=== PATIENT | female | born 1970 | race Caucasian/White ===

== ENCOUNTER → 2020-12-29 | Outpatient (CLI) | payer OTHER ==
--- NOTE | 2020-12-29 08:40 | CT ---
EXAMINATION TYPE: CT lumbar spine wo con DATE OF EXAM: 12/29/2020 COMPARISON: Outside MRI 09/21/2020 HISTORY: 50-year-old female low back pain, M54.5, Lumbago, more on the Lt TECHNIQUE: Contiguous axial scanning of the lumbar spine without IV contrast. Coronal and sagittal re constructions performed. CT DLP: 987 mGycm Automated exposure control for dose reduction was used. FINDINGS: There is a generator device right paramedian posterior lower back. The leads ascend and enter the int erlaminar space of T11-T12. Anterior lumbar fusion hardware noted at L5-S1. Hypertrophic facet arthropathy lower lumbar spine. Mild multilevel degenerative disc disease with variable disc bulging. Vertebral body heights are preserved and alignment is maintained. Changes contribute to moderate left greater than right neuroforaminal stenoses at L5-S1. There is a l eft paracentral osteophytic ridge that may impinge the traversing left S1 nerve root, reference axial image 72 and sagittal image 25. Disc bulges, ligamentum flavum thickening, and facet arthropathy at L4-L5 contributes to a mild narro wing of the spinal canal. Otherwise, no evident significant spinal canal narrowing by CT. At L4-L5, hypertrophic facet arthropathy and bulging disc contributes to a mild to moderate left and mild right neuroforaminal stenosis. Bilateral nonobstructive renal calculi measuring up to 5 mm. IMPRESSION: 1. STATUS POST ANTERIOR LUMBAR FUSION AT L5-S1. THERE IS A RESIDUAL LEFT PARACENTRAL POSTERIOR OSTEOP HYTIC RIDGE WHICH ENCROACHES ONTO THE LATERAL RECESS AND MAY IMPINGE THE TRAVERSING LEFT S1 NERVE ZAID T (AXIAL IMAGE 72 AND SAGITTAL IMAGE 25). 2. MILD MULTILEVEL DEGENERATIVE DISC DISEASE. FACET ARTHROPATHY LOWER LUMBAR SPINE. 3. MODERATE LEFT GREATER THAN RIGHT NEUROFORAMINAL STENOSIS AT L5-S1. MILD TO MODERATE LEFT AND MILD RIGHT NEUROFORAMINAL STENOSIS AT L4-L5. 4. MILD NARROWING OF THE SPINAL CANAL AT L4-L5. NO TOSHA CANAL COMPROMISE EVIDENT BY CT. 5. BILATERAL NONOBSTRUCTIVE RENAL CALCULI MEASURING UP TO 5 MM.
== END | disposition home or self-care (01) ==
LOC: RADCTMAIN 06:08
PROVIDERS: ATTEND Orthopaedic Surgery
DX: M48.061 Spinal stenosis, lumbar region without neurogenic claudication (principal); M51.26 Other intervertebral disc displacement, lumbar region; M51.36 Other intervertebral disc degeneration, lumbar region; M47.896 Other spondylosis, lumbar region; N20.0 Calculus of kidney
CPT/HCPCS: 72131

== ENCOUNTER → 2021-06-03 | Outpatient (CLI) | payer OTHER ==
--- NOTE | 2021-06-03 15:35 | US ---
EXAMINATION TYPE: US kidneys/renal and bladder DATE OF EXAM: 06/03/2021 COMPARISON: CT 2020 CLINICAL HISTORY: N20.0 CALCULUS OF LT KIDNEY. Hx of renal stones and renal stone removal. EXAM MEASUREMENTS: Right Kidney: 10.0 x 4.4 x 4.8 cm Left Kidney: 8.9 x 4.7 x 5.0 cm Right Kidney: Multiple echogenic foci; largest 0.57 cm Left Kidney: Multiple echogenic foci; largest 0.60 cm Bladder: wnl Bilateral Jets seen: Yes IMPRESSION: 1. Bilateral nonobstructing renal stones.
== END | disposition home or self-care (01) ==
LOC: RADUSWWP 13:12
PROVIDERS: ATTEND Urology
DX: N20.0 Calculus of kidney (principal)
CPT/HCPCS: 76770

== ENCOUNTER → 2022-12-28 | Outpatient (CLI) | payer MEDICARE, OTHER ==
--- NOTE | 2022-12-29 00:13 | BD ---
EXAMINATION TYPE: Axial Bone Density DATE OF EXAM: 12/28/2022 CLINICAL HISTORY: 52 years old Female. ICD-10 CODE: Z78.0 ASYMPTOMATIC MENOPAUSAL STAT Height: 64 in Weight: 181 lbs FRAX RISK QUESTIONS: Current Tobacco Use: RISK FACTORS HISTORY OF: Surgery to Spine: l-spine fusion 2013 Active: limited Postmenopausal woman: age 49 Frequent falls: falls due to sciatic nerve MEDICATIONS: Additional Medications: vit d, potassium, anxiety meds, pain meds, cholesterol, EXAM MEASUREMENTS: Bone mineral densitometry was performed using the [employer] System. pt had l-spine fusion 2013 Bone mineral density about the R hip (g/cm2): 0.795 Bone mineral density about the L hip (g/cm2): 0.782 T Score values are as follows: -----R Neck: -2.0 -----L Neck: -2.1 -----R Total: -1.7 -----L Total: -1.8 Z Score values are as follows: -----R Neck: -1.5 -----L Neck: -1.7 -----R Total: -1.6 -----L Total: -1.7 Bone mineral density baseline Bone mineral density about the L Wrist (g/cm2): 0.748 T Score values are as follows: -----Dist. R+U: -1.4 -----Prox. R+U: -1.5 -----Radius total: -0.6 Z Score values are as follows: -----Dist. R+U: -1.3 -----Prox. R+U: -1.4 -----Radius total: -0.5 Bone mineral density baseline FRAX%s: The graph provided illustrates a 6.7% chance for a major osteoporotic fx and a 1.6% chance fo r the hips probability for fx in 10 years time. IMPRESSION: Osteopenia (T Score between -2.5 and -1). There is slightly increased risk of fracture and the patient may be considered for treatment. Re-Screen 2-5 years. NOTE: T-SCORE=SD OF THE YOUNG ADULT MEAN.
--- NOTE | 2022-12-29 11:35 | MM ---
Reason for Exam: Screening (asymptomatic). Patient History: Menarche at age 12. Patient has no children. Hysterectomy at age 48. Postmenopausal. 11/19/2008, Benign Excisional Biopsy on the left side. Risk Values: Gin 5 year model risk: 1.5%. NCI Lifetime model risk: 12.5%. Prior Study Comparison: No prior studies available for comparison. Tissue Density: The breast tissue is almost entirely fat. Findings: Analyzed By CAD. Grouped calcifications right breast 11.9 cm from the nipple medial posterior depth. Not seen on MLO view. Left: There is no suspicious group of microcalcifications or new suspicious mass in either breast. Overall Assessment: Incomplete: need additional imaging evaluation, BI-RAD 0 Management: Diagnostic Mammogram of the right breast. [facility] will attempt to contact patient to return for supplemental views and ultrasound if indicated. Patient should continue monthly self-breast exams. A clinical breast exam by your physician is recommended on an annual basis. This exam should not preclude additional follow-up of suspicious palpable abnormalities. Note on Gin scores and lifetime risk: 1. A Gin score greater than 3% is considered moderate risk. If this is the case, consider specialist referral to assess eligibility for a risk reducing agent. 2. If overall lifetime risk for the development of breast cancer is 20% or higher, the patient may qualify for future screening with alternating mammogram and breast MRI. Electronically signed and approved by: Piep Rosen DO
== END | disposition home or self-care (01) ==
LOC: RADMAMWWP 11:51
PROVIDERS: ATTEND Family Medicine
DX: Z12.31 Encounter for screening mammogram for malignant neoplasm of breast (principal); M85.89 Other specified disorders of bone density and structure, multiple sites; Z78.0 Asymptomatic menopausal state; Z98.1 Arthrodesis status
CPT/HCPCS: 77063; 77067; 77080

== ENCOUNTER → 2023-01-04 | Outpatient (CLI) | payer MEDICARE, OTHER ==
--- NOTE | 2023-01-04 08:28 | MM ---
Reason for Exam: Additional evaluation requested from abnormal screening. Last screening mammogram was performed less than 1 month ago. Patient History: Menarche at age 12. Patient has no children. Hysterectomy at age 48. Postmenopausal. 11/19/2008, Benign Excisional Biopsy on the left side. Risk Values: Gin 5 year model risk: 1.5%. NCI Lifetime model risk: 12.5%. Prior Study Comparison: 12/28/2022 Bilateral MG 3D screening mammo w/cad, [facility]. Tissue Density: Right: There are scattered fibroglandular densities. Findings: Analyzed By CAD. Calcifications are again identified in the inferior medial aspect of the right breast. Evaluation of tomography in both craniocaudal and lateral medial views these are on the initial tomographic images indicating these are skin calcifications. No further follow-up is required. No suspicious groups of microcalcifications, spiculated or lobular masses, architectural distortion or other secondary signs of malignancy are mammographically apparent. Overall Assessment: Benign, BI-RAD 2 Management: Screening Mammogram of both breasts in 1 year. A negative mammogram report should not preclude additional follow up of suspicious palpable abnormalities. Patient should continue monthly self breast exam. A clinical breast exam by your physician is recommended on an annual basis and results should be correlated with mammographic findings. Electronically signed and approved by: Miles Sol D.O. Radiologis
== END | disposition home or self-care (01) ==
LOC: RADMAMWWP 07:40
PROVIDERS: ATTEND Family Medicine
DX: R92.8 Other abnormal and inconclusive findings on diagnostic imaging of breast (principal); Z78.0 Asymptomatic menopausal state
CPT/HCPCS: 77065; G0279; 77061

== ENCOUNTER 2023-03-01 07:28 | Day surgery (SDC) | payer MEDICARE, OTHER ==
[2023-02-23 12:33] VITALS: BMI 29.3
--- NOTE | 2023-02-28 12:23 | P.HPOR ---
History of Present Illness H&P Date: 02/28/23 Subjective: This is a 52 year old female that presents today for follow up evaluation regarding bilateral hand numbness and tingling as well as a several month history of left middle finger locking and catching. She was last seen in March 2022 and since has been wearing bilateral wrist braces for carpal tunnel syndrome. She's recently seen neurology, who is also performing injections into her carpal tunnel. She states she got temporary relief from the carpal tunnel injections, although her symptoms have returned. She underwent a right endoscopic carpal tunnel recently and is doing well. Physical Examination: LUE: AIN/PIN/Radial/Ulnar/Median motor intact. Radial/Ulnar/Median SILT. 2+/4 Radial/Ulnar pulses palpated. 5/5 APB, 5/5 FDI. Negative Finkelsteins, negative CMC grind, positive Durkan's compression. TTP over left middle fingerA1 carlota with locking/catching and clicking. RUE: AIN/PIN/Radial/Ulnar/Median motor intact. Radial/Ulnar/Median SILT. 2+/4 Radial/Ulnar pulses palpated. 5/5 APB, 5/5 FDI. Negative Finkelsteins, negative CMC grind, Incision healed. Impression: 1.) Right carpal tunnel syndrome s/p right endoscopic carpal tunnel release 2.) Left carpal tunnel syndrome 3.) Left middle finger trigger finger Plan: Diagnosis and treatment options were discussed with the patient. She has failed conservative treatment for her left carpal tunnel syndrome and would like to pursue a left endoscopic versus open carpal tunnel release and a left middle finger A1 carlota release. Risks and benefits of surgery including bleeding, infection, damage to surrounding tissue, need for further surgery, possible need to convert to open procedure, residual numbness were discussed and the patient wished to go forward with surgery. The patient was agreeable with this plan. -Kalyan Villanueva DO Orthopedic Hand/Upper Extremity Surgeon Past Medical History Past Medical History: COPD, GERD/Reflux, Hyperlipidemia, Osteoarthritis (OA) Additional Past Medical History / Comment(s): VERTIGO, CHRONIC BACK PAIN( BROKE BACK IN WORK INJURY), OSTEOPENIA, REACTIVE HYPOGLYCEMIA History of Any Multi-Drug Resistant Organisms: None Reported Past Surgical History: Back Surgery Additional Past Surgical History / Comment(s): SPINAL CORD STIMULATOR, LUMBAR SX, KIDNEY STONE PROCEDURE, D & C, ECTOPIC , RT CTR Past Anesthesia/Blood Transfusion Reactions: Motion Sickness, Postoperative Nausea & Vomiting (PONV) Additional Past Anesthesia/Blood Transfusion Reaction / Comment(s): AIRWAY DIFFICULTY Smoking Status: Current every day smoker - Past Family History Mother Family Medical History: Deep Vein Thrombosis (DVT) Medications and Allergies Home Medications Medication Instructions Recorded Confirmed Type ALPRAZolam [Xanax] 0.5 mg PO TID PRN 02/06/23 02/23/23 History Albuterol Inhaler [Ventolin Hfa 1 puff IN DAILY PRN 02/06/23 02/23/23 History Inhaler] Atorvastatin [Lipitor] 10 mg PO HS 02/06/23 02/23/23 History Cetirizine HCl/Pseudoephedrine 1 tab PO BID 02/06/23 02/23/23 History [Zyrtec-D ER 5 mg-120 mg Tablet] FLUoxetine HCL 20 mg PO BID 02/06/23 02/23/23 History Fluticasone Propionate 220 Mcg 2 puff INHALATION BID 02/06/23 02/23/23 History [Flovent 220 Mcg Inhaler] Montelukast [Singulair] 10 mg PO DAILY 02/06/23 02/23/23 History Omeprazole 40 mg PO DAILY@1500 02/06/23 02/23/23 History Allergies Allergy/AdvReac Type Severity Reaction Status Date / Time Penicillins Allergy Rash/Hives Verified 02/23/23 12:10 Sulfa (Sulfonamide Allergy Nausea & Verified 02/23/23 12:10 Antibiotics) Vomiting Physical Examination Osteopathic Statement: *. No significant issues noted on an osteopathic structural exam other than those noted in the History and Physical/Consult.
[~2023-03-01 07:28] MED LIST: HYDROmorphone 0.5 MG/0.5 ML SYRINGE IVP PRN; LACTATED RINGERS 1,000 ML IV SCH; LIDOCAINE 1% INJ 10MG/ML (20 ML MDV) ONE; MIDAZOLAM 2 MG/2 ML VIAL ONE; PROPOFOL 10 MG/ML 20 ML VIAL IV ONE; Pre Op ABX Message 1 EACH MISC MISCELLANE ONE; fentaNYL (PF) 50 MCG/ML 2 ML AMP ONE
[2023-03-01 08:08] LABS: Glucose,Whole Blood 115 mg/dL (70-110)
[2023-03-01] MEDS ORDERED: ONDANSETRON 4 MG/2 ML VIAL ONE (08:08)
[2023-03-01] MEDS ORDERED: BUPIVACAINE (PF) 0.5% 30 ML VIAL SQ ONE ×2 (08:13→08:32)
[2023-03-01] MEDS ORDERED: LIDOCAINE 1% INJ 10MG/ML (20 ML MDV) SQ ONE ×2 (08:13→08:32)
[2023-03-01 08:14] VITALS: TEMP 98.2
--- NOTE | 2023-03-01 09:00 | P.OP ---
Date of Procedure: 03/01/23 Preoperative Diagnosis: 1.) Left carpal tunnel syndrome 2.) Left middle finger stenosing tenosynovitis Postoperative Diagnosis: 1.) Left carpal tunnel syndrome 2.) Left middle finger stenosing tenosynovitis Procedure(s) Performed: 1.) Left endoscopic carpal tunnel release 2.) Left middle finger A1 carlota release Anesthesia: MAC Surgeon: Kalyan Villanueva Liquor Blender #1: Codey Villavicencio Estimated Blood Loss (ml): 0 Pathology: none sent Condition: stable Disposition: PACU Description of Procedure: This is a 52 year old female who presents today for a left endoscopic carpal tunnel release and left middle finger A1 carlota release after having failed conservative treatment in the past. Risks and benefits of surgery were discussed with the patient including bleeding, damage to surrounding tissue, infection, need to convert to open procedure, need for further surgery as well as risks of anesthesia including pulmonary embolism and even and the patient wished to proceed with surgical intervention. The patients was seen in the pre-operative area by myself. Consent and H&P were completed and updated. The correct extremity was marked in the pre-operative area by myself and all other questions were answered. Operative Narrative: The patient was brought to the operating room by the department of anesthesia. They remained on the portable stretcher and a rolling hand table was brought to the side of the operative extremity. Pre-operative time out was performed indicating the correct patient, procedure and laterality. All in the room agreed. The patient was then drifted off to sleep by the department of anesthesia. MAC anesthesia was utilized and a 50:50 mixture of 1% Lidocaine and 0.5% bupivacaine was injected into the subcutaneous tissues of the palmar skin, 8ccs total. A nonsterile tourniquet was then applied to the operative extremity and the left upper extremity was then prepped and draped in normal sterile fashion. The operative extremity was the exsanguinated with an esmarch bandage and the tourniquet was inflated to 250mmHg. 15 blade scalpel was utilized to make a transverse incision on the palmar skin just ulnar to the palmaris longus tendon at the level of the distal wrist crease. Ragnell retractor was then placed radially and blunt dissection was performed to reveal the distal forearm fascia. This was lifted with fine Caleb pick ups and Littler tenotomy scissors were then used to open the forearm fascia transversely and a double skin hook was then placed. Hamate finder was placed into the carpal tunnel and then sequential sized dilators were inserted followed by the synovial elevator to separate the flexor tenosynovium from the undersurface of the transverse carpal ligament and a washboard texture was felt. The Micro[employer] endoscopic carpal tunnel release system gun was the then inserted into the carpal tunnel hugging the deep portion of the transverse carpal ligament in line with the base of the ring finger. Transverse fibers of the ligament were directly visualized. Pressure was applied on the palm to reveal the distal extent of the transverse carpal ligament. The blade was then deployed and the distal half of the transverse carpal ligament was released. The scope was then brought distal again and remaining transverse fibers were incised with the blade. The proximal half of the transverse carpal ligament was then divided and again the scope was advanced distal and remaining transverse fibers were incised with the blade. The radial and ulnar leaflets were directly visualized and mobile consistent with complete release. Tenotomy scissors were then utilized to release the remaining distal forearm fascia under direct visualization taking care to preserve the palmar cutaneous branch of the median nerve. Oblique incision was made at the base of the left middle finger. Blunt dissection was taken down to the level of the A1 carlota. Ragnell retractors were placed both radially and ulnarly to protect neurovascular bundles. Littler tenotomy scissors were then used to release the A1 carlota from proximal to distal under direct visualization. Proximal fascial attachments were released. The tendon was then taken through range of motion and no locking or catching was appreciated. The wound was then closed with interrupted 4-0 nylon sutures in a horizontal mattress fashion. Skin closure at carpal tunnel incision was performed with interrupted 4-0 Monocryl suture followed by steri strips. Sterile dressing was applied consisting 4x4s, Webril, and an gennaro bandage. Tourniquet was let down and the hand immediately was well perfused. The patient was then woken by the department of anesthesia and transferred to PACU in stable condition. Codey HERNDON was present for the case in its entirety and assisted in major portions of the case and protection of vital neurovascular structures. Kalyan Villanueva D.O. Orthopedic Hand/Upper Extremity Surgeon
[2023-03-01] MEDS ORDERED: HYDROcodone/APAP 5-325MG 1 EACH TAB ONE (09:13)
[2023-03-01] MEDS ORDERED: HYDROcodone/APAP 5-325MG 1 EACH TAB PO ONE (09:14)
[2023-03-01 09:31] VITALS: RESP 16
[2023-03-01 09:50] VITALS: BP 106/67; PULSE 89
== END 2023-03-01 10:09 | disposition home or self-care (01) ==
LOC: OR 07:28
PROVIDERS: ATTEND Orthopaedic Surgery Hand Surgery
DX: G56.02 Carpal tunnel syndrome, left upper limb (principal); E78.5 Hyperlipidemia, unspecified; K21.9 Gastro-esophageal reflux disease without esophagitis; J44.9 Chronic obstructive pulmonary disease, unspecified; M19.90 Unspecified osteoarthritis, unspecified site; M65.332 Trigger finger, left middle finger; M65.842 Other synovitis and tenosynovitis, left hand; M85.80 Other specified disorders of bone density and structure, unspecified site; F17.200 Nicotine dependence, unspecified, uncomplicated; Z79.51 Long term (current) use of inhaled steroids; Z88.1 Allergy status to other antibiotic agents; Z88.2 Allergy status to sulfonamides; Z88.0 Allergy status to penicillin; Z79.899 Other long term (current) drug therapy
CPT/HCPCS: 26055; 29848; J2250; J2405; J2001; J3010; J2704; J0665

== ENCOUNTER 2023-03-16 05:53 | Observation (INO) | payer MEDICARE, OTHER ==
--- NOTE | 2023-03-16 06:29 | ED ---
Chest Pain HPI - General Chief Complaint: Chest Pain Stated Complaint: Chest Pain Time Seen by Provider: 03/16/23 06:17 Source: patient Mode of arrival: wheelchair Limitations: no limitations - History of Present Illness Initial Comments: Patient is a 52-year-old female with a history of hyperlipidemia and "the bottom of my heart not functioning properly" who presents to emergency room accompanied by her significant other for intermittent chest pressure and right arm pain. Patient states she has had intermittent chest pain for a while and this morning it got much worse. She states that it radiates down the right arm and from the elbow to the wrist is the worst pain. The chest pain and arm pain did not change with breathing or movement. It does not change with exertion. Patient followed up with Dr. Jacobsen, her location director last week regarding the intermittent chest pain. She was started on isosorbide and metoprolol. She states that since starting the medications she feels as though she might breathing a little bit better. She denies any recent cough, congestion, fever, hemoptysis, swelling of the lower extremities or pain in the extremities. She denies any process of the extremities, difficulty with speech or facial droop. She has had intermittent dizziness and lightheadedness that started when the intermittent chest pain started. She was put on a Holter monitor by Dr. Jacobsen because of the pain and dizziness. She has been trying to get a hold of the location director for follow-up given that she is still having pain however has not heard back from their office. Patient had been given a prescription for nitroglycerin however she does not know went to distinguish between symptoms to take it. - Related Data Home Medications Medication Instructions Recorded Confirmed ALPRAZolam [Xanax] 0.5 mg PO TID PRN 02/06/23 03/01/23 Albuterol Inhaler [Ventolin Hfa 1 puff IN DAILY PRN 02/06/23 03/01/23 Inhaler] Atorvastatin [Lipitor] 10 mg PO HS 02/06/23 03/01/23 Cetirizine HCl/Pseudoephedrine 1 tab PO BID 02/06/23 03/01/23 [Zyrtec-D ER 5 mg-120 mg Tablet] FLUoxetine HCL 20 mg PO BID 02/06/23 03/01/23 Fluticasone Propionate 220 Mcg 2 puff INHALATION BID 02/06/23 03/01/23 [Flovent 220 Mcg Inhaler] Montelukast [Singulair] 10 mg PO DAILY 02/06/23 03/01/23 Omeprazole 40 mg PO DAILY@1500 02/06/23 03/01/23 Allergies Allergy/AdvReac Type Severity Reaction Status Date / Time Penicillins Allergy Rash/Hives Verified 03/16/23 05:55 Sulfa (Sulfonamide Allergy Nausea & Verified 03/16/23 05:55 Antibiotics) Vomiting Review of Systems ROS Statement: Those systems with pertinent positive or pertinent negative responses have been documented in the HPI. ROS Other: All systems not noted in ROS Statement are negative. EKG Findings - EKG Comments: EKG Findings:: EKG shows sinus rhythm, rate of 73 bpm low voltage QRS no acute ST segment elevation or T-wave changes. Past Medical History Past Medical History: COPD, GERD/Reflux, Hyperlipidemia, Osteoarthritis (OA) Additional Past Medical History / Comment(s): VERTIGO, CHRONIC BACK PAIN( BROKE BACK IN WORK INJURY), OSTEOPENIA, REACTIVE HYPOGLYCEMIA History of Any Multi-Drug Resistant Organisms: None Reported Past Surgical History: Back Surgery Additional Past Surgical History / Comment(s): SPINAL CORD STIMULATOR, LUMBAR SX, KIDNEY STONE PROCEDURE, D & C, ECTOPIC , RT CTR Past Anesthesia/Blood Transfusion Reactions: Motion Sickness, Postoperative Nausea & Vomiting (PONV) Additional Past Anesthesia/Blood Transfusion Reaction / Comment(s): AIRWAY DIFFICULTY Past Psychological History: Anxiety, Panic Disorder Smoking Status: Current every day smoker Past Alcohol Use History: None Reported Past Drug Use History: None Reported - Past Family History Mother Family Medical History: Deep Vein Thrombosis (DVT) General Exam Limitations: no limitations General appearance: alert, in no apparent distress Head exam: Present: atraumatic Eye exam: Present: normal appearance Neck exam: Present: normal inspection Respiratory exam: Present: normal lung sounds bilaterally Cardiovascular Exam: Present: regular rate GI/Abdominal exam: Present: soft Extremities exam: Present: normal inspection, full ROM, other (ROM does not elicit arm pain patient is feeling) Back exam: Present: full ROM Neurological exam: Present: alert, oriented X3, CN II-XII intact, other (NIH O, completed by myself) Psychiatric exam: Present: normal affect, normal mood Skin exam: Present: warm, dry Course Vital Signs 03/16/23 03/16/23 05:55 07:58 Temperature 98.7 F 98.1 F Pulse Rate 77 63 Respiratory 18 17 Rate Blood Pressure 124/86 109/70 O2 Sat by Pulse 98 96 Oximetry - Reevaluation(s) Reevaluation #1: 03/16/23 08:49 Patient is currently pain-free in the emergency room and was not given nitro at this time. She was given aspirin upon negative head CT. I discussed lab and imaging results with the patient. Patient's head CT is negative for any mass hemorrhage or other acute changes. Her labs including troponin are within normal limits. No significant EKG changes at this time. He patient has_for. I discussed admission for cardiac evaluation with the patient given that her pain has been worsening. She agrees to admission and cardiac evaluation plan. I did speak with attending ED physician Dr. Ivan regarding patient's symptoms are and disposition. Chest Pain MDM - MDM Was pt. sent in by a medical professional or institution (, PA, ELECTRONIC COILS SUPERVISOR, urgent care, hospital, or care home...) When possible be specific @ -[No] Did you speak to anyone other than the patient for history (EMS, parent, family, police, friend...)? What history was obtained from this source @ -Significant other at the bedside Did you review nursing and triage notes (agree or disagree)? Why? @ -[I reviewed and agree with nursing and triage notes] Were old charts reviewed (outside hosp., previous admission, EMS record, old EKG, old radiological studies, urgent care reports/EKG's, care home records)? Report findings @ -Yes old charts were reviewed including recent carpal tunnel surgery notes and previous EKGs Differential Diagnosis (chest pain, altered mental status, abdominal pain women, abdominal pain men, vaginal bleeding, weakness, fever, dyspnea, syncope, headache, dizziness, GI bleed, back pain, seizure, CVA, palpatations, mental health, musculoskeletal)? @ -Chest pain, atypical chest pain, musculoskeletal chest wall pain, TX, angina, arrhythmia EKG interpreted by me (3pts min.). @ -EKG shows sinus rhythm at a rate of 73 bpm, low voltage QRS, no acute ST segment elevation, normal QT intervals at 402 ms X-rays interpreted by me (1pt min.). @ -X-rays negative for any pneumonia, pneumothorax or other acute changes. CT interpreted by me (1pt min.). @ -CT of the head is negative for any obvious mass hemorrhage or other acute changes however radiology report is pending for confirmation of acute changes. U/S interpreted by me (1pt. min.). @ -[None done] What testing was considered but not performed or refused? (CT, X-rays, U/S, labs)? Why? @ -[None] What meds were considered but not given or refused? Why? @ -[None] Did you discuss the management of the patient with other professionals (professionals i.e. , PA, ELECTRONIC COILS SUPERVISOR, lab, RT, psych nurse, social human services assistants, mobile sales consultant, teacher, payroll officer, showcase trimmer)? Give summary @ -I spoke with [facility] hospitalists Dr Welch regarding patients chest pain, ER workup and admission for cardiac evaluation. He will continue care in the hospital at this time. Was smoking cessation discussed for >3mins.? @ -[No] Was critical care preformed (if so, how long)? @ -[No] Were there social determinants of health that impacted care today? How? (Homelessness, low income, unemployed, alcoholism, drug addiction, transportation, low edu. Level, literacy, decrease access to med. care, fpc, rehab)? @ -[No] Was there de-escalation of care discussed even if they declined (Discuss DNR or withdrawal of care, Hospice)? DNR status @ -[No] What co-morbidities impacted this encounter? (DM, HTN, Smoking, COPD, CAD, Cancer, CVA, ARF, Chemo, Hep., AIDS, mental health diagnosis, sleep apnea, morbid obesity)? @ -Hyperlipidemia, possible arrhythmia Was patient admitted / discharged? Hospital course, mention meds given and route, prescriptions, significant lab abnormalities, going to OR and other pertinent info. @ -Patient will be admitted to the hospital for a cardiac evaluation given the intermittent chest pain that has been worsening. I discussed patient's symptoms are And disposition with attending ED physician Dr. Ivan today. Patient is stable at this time. There is no acute ST segment elevation on EKG and troponin is negative. Undiagnosed new problem with uncertain prognosis? @ -[No] Drug Therapy requiring intensive monitoring for toxicity (Heparin, Nitro, Insulin, Cardizem)? @ -[No] Were any procedures done? @ -[No] Diagnosis/symptom? @ -Chest pain, dizziness Acute, or Chronic, or Acute on Chronic? @ -Acute Uncomplicated (without systemic symptoms) or Complicated (systemic symptoms)? @ -Complicated Side effects of treatment? @ -[No] Exacerbation, Progression, or Severe Exacerbation? @ -progression Poses a threat to life or bodily function? How? (Chest pain, [place], [place], pneumonia, PE, COPD, DKA, ARF, appy, cholecystitis, CVA, Diverticulitis, Homicidal, Suicidal, threat to staff... and all critical care pts) @ -[No] Disposition Clinical Impression: Chest pain, Dizziness Disposition: ADMITTED IP TO THIS [facility] Condition: Good Referrals: Rosemary Rosado MD [Primary Care Provider] - 1-2 days Decision to Admit Reason: Admit from EC Decision Time: 08:50 (admitted to [facility], Dr Welch)
[2023-03-16 06:41] LABS: Basophils % (A) 0 %; Eosinophils # (A) 0.1 k/uL (0-0.7); Eosinophils % (A) 1 %; HCT 41.9 % (34.0-46.0); HGB 13.9 gm/dL (11.4-16.0); Lymphocytes # (A) 3.8 k/uL (1.0-4.8); Lymphocytes % (A) 43 %; MCH 29.3 pg (25.0-35.0); MCHC 33.3 g/dL (31.0-37.0); Mean Platelet Volume 7.6; Monocytes # (A) 0.5 k/uL (0-1.0); Monocytes % (A) 5 %; Neutrophils # (A) 4.3 k/uL (1.3-7.7); Neutrophils % (A) 49 %; Platelet Count 281 k/uL (150-450); RBC 4.76 m/uL (3.80-5.40); RDW 14.3 % (11.5-15.5); WBC 8.9 k/uL (3.8-10.6)
[2023-03-16 06:50] LABS: ALT 29 U/L (4-34); AST 25 U/L (14-36); African American GFR (CKD) >90 (>60 ml/min/1.73 sqM); Albumin 4.2 g/dL (3.5-5.0); Alkaline Phosphatase 78 U/L (38-126); Anion Gap 12 mmol/L; Blood Urea Nitrogen 16 mg/dL (7-17); Calcium 9.9 mg/dL (8.4-10.2); Carbon Dioxide 22 mmol/L (22-30); Chloride 105 mmol/L (98-107); Glucose 106 mg/dL (74-99); Non-African American GFR(CKD) >90 (>60 ml/min/1.73 sqM); Potassium 4.4 mmol/L (3.5-5.1); Sodium 139 mmol/L (137-145); Total Bilirubin 0.4 mg/dL (0.2-1.3); Total Protein 6.9 g/dL (6.3-8.2)
--- NOTE | 2023-03-16 07:31 | XR ---
EXAMINATION TYPE: XR chest 1V portable DATE OF EXAM: 03/16/2023 7:26 AM CLINICAL INDICATION:Female, 52 years old with history of pain; [facility] COMPARISON: Chest radiographs from 06/30/2022 TECHNIQUE: XR chest 1V portable Frontal view of the chest. FINDINGS: Lungs/Pleura: There is no evidence of pleural effusion, focal consolidation, or pneumothorax. Pulmonary vascularity: Unremarkable. Heart/mediastinum: Cardiomediastinal silhouette is unremarkable. Musculoskeletal: No acute osseous pathology. Other findings: Stimulator leads project over the spine. IMPRESSION: No acute cardiopulmonary disease/process.
--- NOTE | 2023-03-16 07:43 | CT ---
EXAMINATION TYPE: CT brain cspine wo con CT DLP: 1657.10 mGycm, Automated exposure control for dose reduction was used. DATE OF EXAM: 03/16/2023 7:36 AM COMPARISON: 06/22/2022. CLINICAL INDICATION:Female, 52 years old with history of dizziness, left arm pain; Dizziness, left ar m pain TECHNIQUE: Brain: Multiple axial CT images of the brain were obtained without IV contrast. Cspine: Axial CT images from the skull base to the inferior aspect of T2 we obtained without intraven ous contrast. Coronal and sagittal reformatted images were also reviewed. FINDINGS: Brain: Extra-axial spaces: No abnormal extra-axial fluid collections. Ventricular system: Within normal limits Cerebral parenchyma: No acute intraparenchymal hemorrhage or mass effect. The lu-white junction is well differentiated. Cerebellum: Unremarkable. Mass effect: No evidence of midline shift. Intracranial vasculature: unremarkable Soft tissues: Normal. Calvarium/osseous structures: No depressed skull fracture. Paranasal sinuses and mastoid air cells: Clear. Visualized orbits: Orbital contents are intact. Cervical spine: Fracture: None. Osseous structures: Multilevel degenerative disc disease changes with endplate spurring and disc oste ophyte complex's. Vertebral alignment: Within normal limits. Spinal canal/Neural Foramina: Disc osteophyte complexes at C5-C6 with at least mild spinal canal sten osis. Facet joint uncovertebral joint arthropathy scattered throughout the cervical spine with varyin g degrees of neural foraminal stenosis. Neck soft tissues: Prevertebral soft tissues are within normal limits. IMPRESSION: 1. No acute intracranial process 2. No evidence of cervical spine fracture. 3. Mild multilevel degenerative disc disease.
[2023-03-16] MEDS ORDERED: ASPIRIN 81 MG PO STA (07:49)
[2023-03-16] MEDS: NITROGLYCERIN SL TABS 0.4 MG TAB SUBLINGUAL STA ×2 (07:57)
[2023-03-16] MEDS ORDERED: NITROGLYCERIN SL TABS 0.4 MG TAB SUBLINGUAL PRN (08:45)
[2023-03-16] MEDS ORDERED: SODIUM CHLORIDE 0.9% 1,000 ML IV SCH (08:45)
[2023-03-16] MEDS ORDERED: METOPROLOL TARTRATE 25 MG TAB PO SCH (09:00)
[2023-03-16] MEDS ORDERED: CAFFEINE CITRATE 60 MG/3 ML VIAL IV PRN (12:21)
[2023-03-16] MEDS ORDERED: REGADENOSON 0.4 MG/5 ML SYRINGE IV PRN (12:21)
[2023-03-16] MEDS ORDERED: AMINOPHYLLINE 500 MG/20 ML VIAL IV PRN (12:21)
--- NOTE | 2023-03-16 12:45 | P.CRDCN ---
History of Present Illness Consult date: 03/16/23 Consult reason: chest pain History of present illness: History of present illness: This is a 52-year-old female patient of Dr. Giselle Jacobsen with past medical history of dyslipidemia, COPD, active tobacco use and dependence, family history of premature coronary artery disease. Patient was recently in the office on 03/10 and at that time scheduled for Lexiscan stress test which is on for April 04. Patient has had right-sided chest pain that has been going on for greater than 1 month. Pain also went to the right arm. No pain with exertion, no dyspnea on exertion. Patient was recently started on Imdur and Toprol-XL and since then has been breathing a little easier. No lower extremity edema. No cough, no fever, no nausea or vomiting. No blood in her stools or urine. Patient thought her pain was much worse and decided to come into the hospital for evaluation. Patient continues to be an active smoker. EKG sinus rhythm with no acute changes Chest x-ray: No acute process CAT scan of the brain and cervical spine showed no acute process. Degenerative disc disease. CBC electrolytes, renal function, liver function tests all within normal limits. Blood sugar 106. Troponin negative 2. Home cardiac medications: Atorvastatin 10 mg at bedtime, Imdur 30 mg daily, Toprol-XL 25 mg daily, Nitrostat as needed. Echocardiogram performed in the office on 02/03/2023 revealed EF 50%, small hypokinetic area in the inferior and inferior septal bedoya of the base. Grade 1 diastolic dysfunction. No left ventricular hypertrophy. Trace aortic regurgitation. Mild mitral regurgitation, mild tricuspid regurgitation. Normal pulmonary artery systolic pressure. Mild pulmonic regurgitation. Review Of Systems: At the time of my evaluation: Constitutional: No fever, no chills. No weakness, fatigue or lethargy. EENT: No headache. No dizziness. Lungs: No shortness of breath, cough, no sputum production. No wheezing. Cardiovascular: No chest pain, no lower extremity edema. No palpitations. No paroxysmal nocturnal dyspnea. No orthopnea. No lightheadedness or dizziness. No syncopal episodes. Abdominal: No abdominal pain. No nausea, vomiting. No diarrhea. No constipation. No bloody or tarry stools. Genitourinary: No dysuria.. No urinary retention. Musculoskeletal: No myalgias. No muscle weakness, no frequent falls. No back pain. No neck pain. Integumentary: No wounds. No rash. No unusual bruising. Neurologic: No aphasia. No facial droop. No change in mentation. No head injury. No headache. Physical examination: Gen: This is a 52 year old female resting on ER stretcher and appears to be in no acute distress. VS: reviewed HEENT: Head is atraumatic, normocephalic. Pupils equal, round. Sclerae is anicteric. NECK: Supple. No JVD. LUNGS: Clear to auscultation. No wheezes or rhonchi. No intercostal retr actions. HEART: Regular rate and rhythm. No murmur. ABDOMEN: Soft No tenderness. EXTREMITIES: No pedal edema. No calf tenderness. NEUROLOGICAL: Patient is awake, alert and oriented x3. Assessment: Atypical chest pain, acute coronary syndrome ruled out Dyslipidemia COPD Active tobacco use and dependence Family history of premature coronary artery disease Plan: Resume patient's home cardiac medications Schedule patient for Lexiscan stress test tomorrow No need to obtain echocardiogram as this was just completed in January Further recommendations to follow based upon clinical course Thank you kindly for this consultation. Nurse practitioner note has been reviewed, I agree with documented findings and plan of care. Patient was seen and examined. Past Medical History Past Medical History: COPD, GERD/Reflux, Hyperlipidemia, Osteoarthritis (OA) Additional Past Medical History / Comment(s): VERTIGO, CHRONIC BACK PAIN( BROKE BACK IN WORK INJURY), OSTEOPENIA, REACTIVE HYPOGLYCEMIA History of Any Multi-Drug Resistant Organisms: None Reported Past Surgical History: Back Surgery Additional Past Surgical History / Comment(s): SPINAL CORD STIMULATOR, LUMBAR SX, KIDNEY STONE PROCEDURE, D & C, ECTOPIC , RT CTR Past Anesthesia/Blood Transfusion Reactions: Motion Sickness, Postoperative Nausea & Vomiting (PONV) Additional Past Anesthesia/Blood Transfusion Reaction / Comment(s): AIRWAY DIFFICULTY Past Psychological History: Anxiety, Panic Disorder Smoking Status: Current every day smoker Past Alcohol Use History: None Reported Past Drug Use History: None Reported - Past Family History Mother Family Medical History: Deep Vein Thrombosis (DVT) Medications and Allergies Home Medications Medication Instructions Recorded Confirmed Type ALPRAZolam [Xanax] 0.5 mg PO Q6H PRN 02/06/23 03/16/23 History Albuterol Inhaler [Ventolin Hfa 2 puff INHALATION RT-Q4H PRN 02/06/23 03/16/23 History Inhaler] Atorvastatin [Lipitor] 10 mg PO HS 02/06/23 03/16/23 History Cetirizine HCl/Pseudoephedrine 1 tab PO BID 02/06/23 03/16/23 History [Zyrtec-D ER 5 mg-120 mg Tablet] FLUoxetine HCL 20 mg PO BID 02/06/23 03/16/23 History Fluticasone Propionate 220 Mcg 2 puff INHALATION RT-BID 02/06/23 03/16/23 History [Flovent 220 Mcg Inhaler] Montelukast [Singulair] 10 mg PO HS 02/06/23 03/16/23 History Omeprazole 40 mg PO DAILY@1500 02/06/23 03/16/23 History Isosorbide Mononitrate ER [Imdur] 30 mg PO DAILY 03/16/23 03/16/23 History Metoprolol Succinate (ER) [Toprol 25 mg PO DAILY 03/16/23 03/16/23 History Xl] Nitroglycerin Sl Tabs [Nitrostat] 0.4 mg SL Q5M PRN 03/16/23 03/16/23 History Allergies Allergy/AdvReac Type Severity Reaction Status Date / Time Penicillins Allergy Rash/Hives Verified 03/16/23 11:28 Sulfa (Sulfonamide AdvReac Nausea & Verified 03/16/23 11:28 Antibiotics) Vomiting sulfamethoxazole AdvReac Nausea & Verified 03/16/23 11:28 [From Bactrim] Vomiting trimethoprim [From Bactrim] AdvReac Nausea & Verified 03/16/23 11:28 Vomiting Physical Exam Vitals: Vital Signs Temp Pulse Resp BP Pulse Ox 03/16/23 07:58 98.1 F 63 17 109/70 96 03/16/23 05:55 98.7 F 77 18 124/86 98 Intake and Output 03/15/23 03/16/23 03/16/23 22:59 06:59 14:59 Other: Weight 80.286 kg Results 03/16/23 06:28 03/16/23 06:28 Cardiac Enzymes 03/16/23 03/16/23 03/16/23 Range/Units 06:28 06:28 09:23 AST 25 (14-36) U/L Troponin I <0.012 <0.012 (0.000-0.034) ng/mL CBC 03/16/23 Range/Units 06:28 WBC 8.9 (3.8-10.6) k/uL RBC 4.76 (3.80-5.40) m/uL Hgb 13.9 (11.4-16.0) gm/dL Hct 41.9 (34.0-46.0) % Plt Count 281 (150-450) k/uL Comprehensive Metabolic Panel 03/16/23 Range/Units 06:28 Sodium 139 (137-145) mmol/L Potassium 4.4 (3.5-5.1) mmol/L Chloride 105 (98-107) mmol/L Carbon Dioxide 22 (22-30) mmol/L BUN 16 (7-17) mg/dL Creatinine 0.66 (0.52-1.04) mg/dL Glucose 106 H (74-99) mg/dL Calcium 9.9 (8.4-10.2) mg/dL AST 25 (14-36) U/L ALT 29 (4-34) U/L Alkaline Phosphatase 78 (38-126) U/L Total Protein 6.9 (6.3-8.2) g/dL Albumin 4.2 (3.5-5.0) g/dL Current Medications Generic Name Dose Route Start Last Admin Trade Name Freq PRN Reason Stop Dose Admin Aspirin 325 mg 03/17/23 09:00 Aspirin 325 Mg Tab PO DAILY [facility] Atorvastatin Calcium 10 mg 03/16/23 21:00 Atorvastatin 10 Mg Tab PO HS [facility] Sodium Chloride 1,000 mls @ 100 mls/hr 03/16/23 08:45 03/16/23 09:22 Saline 0.9% IV 100 mls/hr .Q10H RICARDO Administration Isosorbide Mononitrate 30 mg 03/17/23 09:00 Isosorbide Mononitrate Er 30 Mg Tab.Er.24h PO DAILY [facility] Metoprolol Succinate 25 mg 03/17/23 09:00 Metoprolol Succinate (Er) 25 Mg Tab.Er.24h PO DAILY [facility] Metoprolol Tartrate 25 mg 03/16/23 09:00 03/16/23 08:55 Metoprolol Tartrate 25 Mg Tab PO 03/16/23 22:00 25 mg BID RICARDO Administration Nitroglycerin 0.4 mg 03/16/23 08:45 Nitroglycerin Sl Tabs 0.4 Mg Tab SUBLINGUAL Q5M PRN Chest Pain Intake and Output 03/15/23 03/16/23 03/16/23 22:59 06:59 14:59 Other: Weight 80.286 kg 03/16/23 06:28 03/16/23 06:28
[2023-03-16] MEDS ORDERED: ALBUTEROL NEBULIZED 2.5 MG/3 ML INHALATION PRN (15:27)
[2023-03-16] MEDS ORDERED: ALPRAZolam 0.5 MG TAB PO PRN (15:27)
--- NOTE | 2023-03-16 15:32 | P.HPIM ---
History of Present Illness H&P Date: 03/16/23 Patient is a 52-year-old female with history of depression/anxiety, dyslipidemia, GERD, recurrent chest pain presented with chest pain. She claims that she has been dealing with recurrent chest pain for almost 2 months. 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 She did have a Holter monitor which did not reveal much. She was found to have some wall motion abnormalities on her echocardiogram. She was scheduled for a stress test this month. However due to worsening chest pain which is mostly right-sided and radiating down to her right arm she decided to come to the hospital. At worse, and the chest pain was 8/10. It feels like a soreness according to her. She denies any shortness of breath, palpitations, lightheadedness, abdominal pain, nausea, vomiting, urinary or bowel complaints. She denies any recent travel or sick contacts. She smokes about 4-5 cigarettes now, but previously smoked one pack per day for about 40 years. She denies any alcohol use or illicit drug use. In the ED, vital signs within normal limits. Laboratory workup unremarkable, troponin negative 2. Chest x-ray does not show any acute process. EKG Shows normal sinus rhythm. Head CT and cervical spine CT does not show any acute process. Cardiology consulted. Patient admitted for observation for chest pain. Pertinent positives and negatives as discussed in HPI, a complete review of systems was performed and all other systems are negative. Patient seen and examined at bedside. Vital signs reviewed General: nontoxic, no distress, appears at stated age Derm: warm, dry Head: atraumatic, normocephalic, symmetric Eyes: EOMI, no lid lag, anicteric sclera, pupils equal round reactive to light ENT: Nose and ears atraumatic Neck: No thyromegaly, supple Mouth: no lip lesion, mucus membranes moist Cardiovascular: S1S2 reg, no murmur, no edema Lungs: clear to auscultation bilateral, no rhonchi, no rales, no wheeze, no accessory muscle use Abdominal: soft, nontender to palpation, no guarding, no appreciable organomegaly Ext: no gross muscle atrophy, muscle strength muscle strength 5 out of 5 in all 4 extremities, no contractures Neuro: CN II-XII grossly intact Psych: Alert, oriented, appropriate affect Assessment/Plan: Active: Atypical chest pain, rule out ACS Nicotine dependence -Cardiology note reviewed, stress test tomorrow -No need to obtain new echocardiogram as it was done in January -Continue aspirin 81 mg, continue atorvastatin 10 mg, Imdur 30 mg daily, metoprolol 25 mg daily -Continue telemetry -Counseled regarding smoking cessation Chronic: Depression/anxiety GERD Dyslipidemia COPD not in exacerbation The patient is admitted with an anticipated less than 2 midnight stay as observation status for evaluation of chest pain. Surrogate decision-maker: Spouse CODE STATUS: Full code DVT prophylaxis: Not indicated, patient is ambulatory Anticipated discharge date: Pending clinical course Anticipated discharge place: Pending clinical course A total of 55 minutes was spent on the care of this complex patient more than 50% of the time was spent in counseling and care coordination. Past Medical History Past Medical History: COPD, GERD/Reflux, Hyperlipidemia, Osteoarthritis (OA) Additional Past Medical History / Comment(s): VERTIGO, CHRONIC BACK PAIN( BROKE BACK IN WORK INJURY), OSTEOPENIA, REACTIVE HYPOGLYCEMIA History of Any Multi-Drug Resistant Organisms: None Reported Past Surgical History: Back Surgery Additional Past Surgical History / Comment(s): SPINAL CORD STIMULATOR, LUMBAR SX, KIDNEY STONE PROCEDURE, D & C, ECTOPIC , RT CTR Past Anesthesia/Blood Transfusion Reactions: Motion Sickness, Postoperative Nausea & Vomiting (PONV) Additional Past Anesthesia/Blood Transfusion Reaction / Comment(s): AIRWAY DIFFICULTY Past Psychological History: Anxiety, Panic Disorder Smoking Status: Current every day smoker Past Alcohol Use History: None Reported Past Drug Use History: None Reported - Past Family History Mother Family Medical History: Deep Vein Thrombosis (DVT) Medications and Allergies Home Medications Medication Instructions Recorded Confirmed Type ALPRAZolam [Xanax] 0.5 mg PO Q6H PRN 02/06/23 03/16/23 History Albuterol Inhaler [Ventolin Hfa 2 puff INHALATION RT-Q4H PRN 02/06/23 03/16/23 History Inhaler] Atorvastatin [Lipitor] 10 mg PO HS 02/06/23 03/16/23 History Cetirizine HCl/Pseudoephedrine 1 tab PO BID 02/06/23 03/16/23 History [Zyrtec-D ER 5 mg-120 mg Tablet] FLUoxetine HCL 20 mg PO BID 02/06/23 03/16/23 History Fluticasone Propionate 220 Mcg 2 puff INHALATION RT-BID 02/06/23 03/16/23 History [Flovent 220 Mcg Inhaler] Montelukast [Singulair] 10 mg PO HS 02/06/23 03/16/23 History Omeprazole 40 mg PO DAILY@1500 02/06/23 03/16/23 History Isosorbide Mononitrate ER [Imdur] 30 mg PO DAILY 03/16/23 03/16/23 History Metoprolol Succinate (ER) [Toprol 25 mg PO DAILY 03/16/23 03/16/23 History Xl] Nitroglycerin Sl Tabs [Nitrostat] 0.4 mg SL Q5M PRN 03/16/23 03/16/23 History Allergies Allergy/AdvReac Type Severity Reaction Status Date / Time Penicillins Allergy Rash/Hives Verified 03/16/23 11:28 Sulfa (Sulfonamide AdvReac Nausea & Verified 03/16/23 11:28 Antibiotics) Vomiting sulfamethoxazole AdvReac Nausea & Verified 03/16/23 11:28 [From Bactrim] Vomiting trimethoprim [From Bactrim] AdvReac Nausea & Verified 03/16/23 11:28 Vomiting Physical Exam Vitals: Vital Signs Temp Pulse Resp BP Pulse Ox 03/16/23 14:50 18 03/16/23 14:00 66 16 105/63 97 03/16/23 07:58 98.1 F 63 17 109/70 96 03/16/23 05:55 98.7 F 77 18 124/86 98 Intake and Output 03/16/23 03/16/23 03/16/23 06:59 14:59 22:59 Other: Weight 80.286 kg Results CBC & Chem 7: 03/16/23 06:28 03/16/23 06:28 Labs: Abnormal Lab Results - Last 24 Hours (Table) 03/16/23 Range/Units 06:28 Glucose 106 H (74-99) mg/dL
[2023-03-16] MEDS: FLUTICASONE 220 MCG INHALER INHALATION SCH (20:06)
[2023-03-16] MEDS ORDERED: ATORVASTATIN 10 MG TAB PO SCH (21:00)
[2023-03-16] MEDS ORDERED: MONTELUKAST 10 MG TAB PO SCH (21:00)
[2023-03-16] MEDS: FLUoxetine HCL 20 MG CAP PO SCH (21:37)
[2023-03-16] MEDS ORDERED: ACETAMINOPHEN TAB 325 MG TAB PO PRN (21:42)
[2023-03-17] MEDS ORDERED: REGADENOSON 0.4 MG/5 ML SYRINGE IV ONE (08:00)
[2023-03-17 08:19] VITALS: RESP 12
[2023-03-17] MEDS: FLUTICASONE 220 MCG INHALER INHALATION SCH (08:34)
[2023-03-17 08:43] LABS: Chol/HDL Ratio 4.07 Ratio; LDL Cholesterol,Calculated 72.3 mg/dL (0.0-131.0)
[2023-03-17] MEDS ORDERED: ASPIRIN 81 MG PO SCH (09:00)
[2023-03-17] MEDS ORDERED: ASPIRIN 325 MG TAB PO SCH (09:00)
[2023-03-17] MEDS ORDERED: METOPROLOL SUCCINATE (ER) 25 MG TAB.ER.24H PO SCH (09:00)
[2023-03-17] MEDS ORDERED: ISOSORBIDE MONONITRATE ER 30 MG TAB.ER.24H PO SCH (09:00)
[2023-03-17] MEDS: FLUoxetine HCL 20 MG CAP PO SCH (10:10)
--- NOTE | 2023-03-17 10:11 | P.PN ---
Subjective Progress Note Date: 03/17/23 History of present illness: This is a 52-year-old female patient of Dr. Giselle Jacobsen with past medical history of dyslipidemia, COPD, active tobacco use and dependence, family history of premature coronary artery disease. Patient was recently in the office on 03/10 and at that time scheduled for Lexiscan stress test which is on for April 04. Patient has had right-sided chest pain that has been going on for greater than 1 month. Pain also went to the right arm. No pain with exertion, no dyspnea on exertion. Patient was recently started on Imdur and Toprol-XL and since then has been breathing a little easier. No lower extremity edema. No cough, no fever, no nausea or vomiting. No blood in her stools or urine. Patient thought her pain was much worse and decided to come into the hospital for evaluation. Patient continues to be an active smoker. EKG sinus rhythm with no acute changes Chest x-ray: No acute process CAT scan of the brain and cervical spine showed no acute process. Degenerative disc disease. CBC electrolytes, renal function, liver function tests all within normal limits. Blood sugar 106. Troponin negative 2. Home cardiac medications: Atorvastatin 10 mg at bedtime, Imdur 30 mg daily, Toprol-XL 25 mg daily, Nitrostat as needed. Echocardiogram performed in the office on 02/03/2023 revealed EF 50%, small hypokinetic area in the inferior and inferior septal bedoya of the base. Grade 1 diastolic dysfunction. No left ventricular hypertrophy. Trace aortic regurgitation. Mild mitral regurgitation, mild tricuspid regurgitation. Normal pulmonary artery systolic pressure. Mild pulmonic regurgitation. 03/17 Patient is seen today in follow-up on the observation unit. She is scheduled for Lexiscan stress test today. She has minimal chest pain located on the right side. Heart rate is been in the 50s to 70s, blood pressure 111/69, pulse ox 94% on room air. Physical examination: Gen: This is a 52 year old female resting in bed and appears to be in no acute distress. VS: reviewed HEENT: Head is atraumatic, normocephalic. Pupils equal, round. Sclerae is anicte sola. NECK: Supple. No JVD. LUNGS: Clear to auscultation. No wheezes or rhonchi. No intercostal re tractions. HEART: Regular rate and rhythm. No murmur. ABDOMEN: Soft No tenderness. EXTREMITIES: No pedal edema. No calf tenderness. NEUROLOGICAL: Patient is awake, alert and oriented x3. Assessment: Atypical chest pain, acute coronary syndrome ruled out Dyslipidemia COPD Active tobacco use and dependence Family history of premature coronary artery disease Plan: Continue patient's home cardiac medications Schedule patient for Lexiscan stress test today No need to obtain echocardiogram as this was just completed in January If Marcela scan is within normal limits, patient is cleared for discharge home and may follow-up with Dr. Giselle Jacobsen in 1-2 weeks. Nurse practitioner note has been reviewed, I agree with documented findings and plan of care. Patient was seen and examined. Objective - Vital Signs Vital signs: Vital Signs Temp 97.6 F 03/17/23 02:14 Pulse 71 03/17/23 02:14 Resp 15 03/17/23 02:14 BP 123/69 03/17/23 02:14 Pulse Ox 97 03/17/23 02:14 FiO2 Intake & Output 03/16/23 03/17/23 03/17/23 18:59 06:59 18:59 Weight 80.286 kg Other: # Voids 2 - Labs CBC & Chem 7: 03/16/23 06:28 03/16/23 06:28
--- NOTE | 2023-03-17 10:44 | NM ---
EXAMINATION TYPE: NM stress lexiscan cardiolite DATE OF EXAM: 03/17/2023 COMPARISON: NONE CLINICAL INDICATION: Female, 52 years old with history of chest pain; TECHNIQUE: After the intravenous administration of 10.7 mCi Tc 99m Sestamibi - Cardiolite resting SP ECT images acquired 90 minutes post injection. The patient received 0.4mg Lexiscan, 26.6 mCi Tc 99m Sestamibi - Stress images obtained [address] injection FINDINGS: Review of stress and rest SPECT images demonstrates no distinct perfusion abnormality. Gated analysi s shows normal wall motion with an estimated left ventricular ejection fraction of 69 %. TID increas ed at 1.21. IMPRESSION: While there is no focal reversibility seen, TID is increased. An elevated 'transient isch emic dilatation' value can be seen in the setting of multivessel, global inducible ischemia. Further evaluation recommended.
--- NOTE | 2023-03-17 12:24 | CA ---
Lexiscan Nuclear Stress Test Report Name: Luz Maria Mckeon Exam Date: 03/17/2023 09:01 Exam Location: [place] Stress Ht (in): 66 Wt (lb): 172 BSA: 1.88 Ordering Phys: Tana Borja Referring Phys: TANA BORJA,, Technologist: Hernandez Chaney Age: 52 Gender: F : 1970 Procedure CPT: Indications: Reflex order-Stress test ICD-10 Codes: Patient History: Medications: SEE CHART Meds past 24 hrs: Pretest Chest Pain: STRESS TEST Lexiscan Protocol Exercise Duration (min:sec): 02:[address] Depressions (mm): Angina Score: Lund Score: Resting HR (bpm): 56 Peak HR (bpm): 105 Resting BP (mmHg): 108 / 60 Peak BP (mmHg): 127 / 66 MPHR: 169 Target HR: 144 % MPHR: 62 METS: 1.0 Total Dose: Peak Dose: Atropine: Double Product: 05498 BP Response: Stress Termination: PROTOCOL COMPLETE Stress Symptoms: CHEST PRESSURE RIGHT SIDE Stress Summary: ECG ANALYSIS Resting ECG: Sinus rhythm. Normal conduction. No arrhythmias. Normal repolarization. Stress ECG: No ECG changes from baseline with Lexiscan infusion. CONCLUSIONS No ECG evidence of ischemia with Lexiscan infusion. Nuclear test results to follow. Dr. Leesa Cramer MD (Electronically Signed) Final Date: 17 March 2023 12:23
--- NOTE | 2023-03-17 13:51 | P.DS ---
Providers Date of admission: 03/16/23 11:27 Expected date of discharge: 03/17/23 Attending physician: Jeremy Welch MD Consults: 03/16/23 08:45 Consult Physician Urgent Consulting Provider: [facility] Consult Reason/Comments: chest pain Do you want consulting provider notified?: Yes Primary care physician: Rosemary [facility] Course: Discharge Diagnosis: Costochondritis Nicotine dependence Depression/anxiety GERD Dyslipidemia COPD not in exacerbation Hospital Course: 52-year-old female with history of depression/anxiety, dyslipidemia, GERD, recurrent chest pain presented with chest pain. In the ED, vital signs within normal limits. Laboratory workup unremarkable, troponin negative 2. Chest x- ray does not show any acute process. EKG Shows normal sinus rhythm. Head CT and cervical spine CT does not show any acute process. Cardiology consulted. Patient admitted for observation for chest pain. Stress test negative for ischemia. Cardiology recommending outpatient follow-up. Patient seen and examined at bedside. Vital signs reviewed and stable. General: nontoxic, no distress, appears at stated age Derm: warm, dry Head: atraumatic, normocephalic, symmetric Eyes: EOMI, no lid lag, anicteric sclera Mouth: no lip lesion, mucus membranes moist Cardiovascular: S1S2 reg, no murmur Lungs: CTA bilateral, no rhonchi, no rales , no accessory muscle use Abdominal: soft, nontender to palpation, no guarding, no appreciable organomegaly Ext: no gross muscle atrophy, no edema, no contractures Neuro: CN II-XI grossly intact, no focal neuro deficits Psych: Alert, oriented, appropriate affect A total of 36 minutes of time were spent preparing this complex discharge summary. Patient was discharged on 03/17/23 at 1340. Patient Condition at Discharge: Stable Plan - Discharge Summary New Discharge Prescriptions: New Atorvastatin [Lipitor] 40 mg PO HS #60 tablet Continue Fluticasone Propionate 220 Mcg [Flovent 220 Mcg Inhaler] 2 puff INHALATION RT-BID ALPRAZolam [Xanax] 0.5 mg PO Q6H PRN PRN Reason: Anxiety Omeprazole 40 mg PO DAILY@1500 Montelukast [Singulair] 10 mg PO HS FLUoxetine HCL 20 mg PO BID Albuterol Inhaler [Ventolin Hfa Inhaler] 2 puff INHALATION RT-Q4H PRN PRN Reason: Shortness Of Breath Or Wheezing Cetirizine HCl/Pseudoephedrine [Zyrtec-D ER 5 mg-120 mg Tablet] 1 tab PO BID Isosorbide Mononitrate ER [Imdur] 30 mg PO DAILY Metoprolol Succinate (ER) [Toprol XL] 25 mg PO DAILY Nitroglycerin Sl Tabs [Nitrostat] 0.4 mg SL Q5M PRN PRN Reason: Chest Pain Discontinued Atorvastatin [Lipitor] 10 mg PO HS Discharge Medication List ALPRAZolam [Xanax] 0.5 mg PO Q6H PRN 02/06/23 [History] Albuterol Inhaler [Ventolin Hfa Inhaler] 2 puff INHALATION RT-Q4H PRN 02/06/23 [History] Cetirizine HCl/Pseudoephedrine [Zyrtec-D ER 5 mg-120 mg Tablet] 1 tab PO BID 02/06/23 [History] FLUoxetine HCL 20 mg PO BID 02/06/23 [History] Fluticasone Propionate 220 Mcg [Flovent 220 Mcg Inhaler] 2 puff INHALATION RT- BID 02/06/23 [History] Montelukast [Singulair] 10 mg PO HS 02/06/23 [History] Omeprazole 40 mg PO DAILY@1500 02/06/23 [History] Isosorbide Mononitrate ER [Imdur] 30 mg PO DAILY 03/16/23 [History] Metoprolol Succinate (ER) [Toprol XL] 25 mg PO DAILY 03/16/23 [History] Nitroglycerin Sl Tabs [Nitrostat] 0.4 mg SL Q5M PRN 03/16/23 [History] Atorvastatin [Lipitor] 40 mg PO HS #60 tablet 03/17/23 [Rx] Follow up Appointment(s)/Referral(s): Rosemary Rosado MD [Primary Care Provider] - 1-2 days Luis Fernando Jacobsen MD [STAFF PHYSICIAN] - 1 Week Patient Instructions/Handouts: Chest Pain (DC) Activity/Diet/Wound Care/Special Instructions: Please see cardiology. Discharge Disposition: HOME SELF-CARE
[2023-03-17 14:08] VITALS: BP 112/63; PULSE 66; TEMP 97.8
[2023-03-17] MEDS ORDERED: PANTOPRAZOLE 40 MG TABLET PO SCH (15:00)
== END 2023-03-17 14:39 | disposition home or self-care (01) ==
LOC: EC 05:53 → 6NMEDSUR 11:27
PROVIDERS: ADMIT Student in an Organized Health Care Education/Training Program; ATTEND Student in an Organized Health Care Education/Training Program
DX: M94.0 Chondrocostal junction syndrome [Tietze] (principal); R42 Dizziness and giddiness; E78.5 Hyperlipidemia, unspecified; J44.9 Chronic obstructive pulmonary disease, unspecified; K21.9 Gastro-esophageal reflux disease without esophagitis; G89.29 Other chronic pain; M54.9 Dorsalgia, unspecified; F41.0 Panic disorder [episodic paroxysmal anxiety]; F32.A Depression, unspecified; F17.210 Nicotine dependence, cigarettes, uncomplicated; Z96.82 Presence of neurostimulator; Z79.82 Long term (current) use of aspirin; Z79.899 Other long term (current) drug therapy; Z88.0 Allergy status to penicillin; Z88.2 Allergy status to sulfonamides; Z82.49 Family history of ischemic heart disease and other diseases of the circulatory system
CPT/HCPCS: 96360; 99285; 36415; 94640; 93005; 93017; 80061; 80053; 84484; 85025; 71045; 72125; 70450; 78452; G0378 ×2; A9500; J2785

== ENCOUNTER → 2023-06-21 | Outpatient (CLI) | payer MEDICARE ==
--- NOTE | 2023-06-21 11:02 | CTL ---
EXAMINATION TYPE: CT Low Dose Lung DATE OF EXAM ORDERED: 06/21/2023 HISTORY: . Low Dose CT Lung Screening CT DLP: 83.[address] CTDI: 2.3 mGy IV CONTRAST USED: None. SCREENING VISIT: First visit COMPARISON: None. TECHNIQUE: Low dose computed tomography scan was performed through the chest at 1 millimeter thick se ctions and reconstructed images in the coronal plane at [address] DIAGNOSTIC QUALITY: Satisfactory FINDINGS: LUNG NODULES: Not presentLeft lung: no nodules identified.Right lung: no nodules identified. LUNGS: COPD: Severity: Mild Fibrosis: Severity: Mild scattered subpleural fibrosis Lymph nodes: None Other findings: None RIGHT PLEURAL SPACE: Effusion: None Calcification: None Thickening: None Pneumothorax: None LEFT PLEURAL SPACE: Effusion: None Calcification: None Thickening: None Pneumothorax: None HEART: Heart Size: Mildly enlarged Coronary calcification: Mild Pericardial effusion: None OTHER FINDINGS: Upper abdomen: No significant abnormality Bony thorax: Degenerative changes Supraclavicular region: No significant abnormalityOther: No significant abnormalityI IMPRESSION: No concerning pulmonary nodules identified FOLLOW UP CT CHEST RECOMMENDATION: Follow-up screening in one year CT LUNG RAD: LUNG RAD CATEGORY 1 benign
== END | disposition home or self-care (01) ==
LOC: RADCTMAIN 10:05
PROVIDERS: ATTEND Family Medicine
DX: Z12.2 Encounter for screening for malignant neoplasm of respiratory organs (principal); F17.210 Nicotine dependence, cigarettes, uncomplicated
CPT/HCPCS: 71271

== ENCOUNTER 2024-01-07 14:03 | Emergency (ER) | payer MEDICARE ==
[2024-01-07 14:15] VITALS: TEMP 98.1
[2024-01-07] MEDS: KETOROLAC 15 MG/ML 1 ML VIAL IVP STA (16:04)
[2024-01-07] MEDS: SODIUM CHLORIDE 0.9% 1,000 ML IV STA (16:05)
[2024-01-07] MEDS: methylPREDNISolone SOD SUCCI 125 MG/2 ML VIAL IV STA (16:06)
[2024-01-07 16:25] LABS: Basophils # (A) 0.1 k/uL (0-0.2); Basophils % (A) 1 %; Eosinophils # (A) 0.1 k/uL (0-0.7); Eosinophils % (A) 1 %; HCT 42.7 % (34.0-46.0); HGB 14.1 gm/dL (11.4-16.0); Lymphocytes # (A) 4.5 k/uL (1.0-4.8); Lymphocytes % (A) 35 %; MCH 30.3 pg (25.0-35.0); MCHC 32.9 g/dL (31.0-37.0); MCV 92.1 fL (80.0-100.0); Mean Platelet Volume 7.3; Monocytes # (A) 0.7 k/uL (0-1.0); Monocytes % (A) 6 %; Neutrophils # (A) 7.2 k/uL (1.3-7.7); Neutrophils % (A) 56 %; Platelet Count 246 k/uL (150-450); RBC 4.64 m/uL (3.80-5.40); RDW 14.5 % (11.5-15.5); WBC 12.8 k/uL (3.8-10.6)
[2024-01-07] MEDS: MORPHINE SULFATE 2 MG/ML SYRINGE IVP STA ×2 (16:31→17:59)
[2024-01-07 16:33] LABS: Amorphous Sediment,Urine Occasional /hpf; Appearance,Urine Cloudy (Clear); Bacteria,Urine Rare /hpf; Bilirubin,Urine 1+ (Negative); Blood,Urine Negative (Negative); Color,Urine Yellow; Glucose,Urine (UA) Negative (Negative); Hyaline Casts,Urine 4 /lpf (0-2); Ketones,Urine Trace (Negative); Leukocyte Esterase,Urine Trace (Negative); Mucus,Urine Occasional /hpf; Nitrite,Urine Negative (Negative); PH, Urine 5.5 (5.0-8.0); Protein,Urine 1+ (Negative); Squamous Epithelial Cell,Urine 7 /hpf (0-4); WBC,Urine 2 /hpf (0-5)
[2024-01-07 16:36] LABS: ALT 34 U/L (4-34); AST 24 U/L (14-36); African American GFR (CKD) >90 (>60 ml/min/1.73 sqM); Albumin 3.7 g/dL (3.5-5.0); Alkaline Phosphatase 70 U/L (38-126); Anion Gap 7 mmol/L; Blood Urea Nitrogen 15 mg/dL (7-17); Calcium 9.3 mg/dL (8.4-10.2); Carbon Dioxide 26 mmol/L (22-30); Chloride 106 mmol/L (98-107); Glucose 113 mg/dL (74-99); Magnesium 1.7 mg/dL (1.6-2.3); Non-African American GFR(CKD) >90 (>60 ml/min/1.73 sqM); Potassium 3.8 mmol/L (3.5-5.1); Sodium 139 mmol/L (137-145); Total Bilirubin 0.4 mg/dL (0.2-1.3)
--- NOTE | 2024-01-07 16:38 | CT ---
EXAMINATION TYPE: CT cervical spine wo con DATE OF EXAM: 01/07/2024 COMPARISON: 03/16/2023 HISTORY: 53-year-old female Rt side shoulder/upper chest pain. TECHNIQUE: Contiguous axial scanning of the cervical spine without IV contrast. Coronal and sagittal reconstructions performed. CT DLP: Combined DLP of 1959.2 mGycm Automated exposure control for dose reduction was used. FINDINGS: No previous cervical junction abnormality, predental space widening, or prevertebral soft tissue swel ling. Mild degenerative disc disease lower cervical spine. Reversal of the normal cervical lordosis but wit h preserved alignment. Mild facet arthropathy lower cervical spine. No acute fracture is seen. Changes result in mild left neural foraminal narrowing at C5-C6. No evident canal compromise by CT though assessment of the spinal canal from C5 and below is limited due to artifact from the patient's shoulders. IMPRESSION: MILD DEGENERATIVE DISC DISEASE AND FACET ARTHROPATHY MID TO LOWER CERVICAL SPINE. CHANGES RESULT IN M ILD LEFT NEUROFORAMINAL NARROWING AT C5-C6. NO ACUTE FRACTURE OR MALALIGNMENT.
[2024-01-07 16:45] LABS: INR 0.9 (<1.2); Prothrombin Time 10.3 sec (10.0-12.5)
--- NOTE | 2024-01-07 16:50 | CT ---
EXAMINATION TYPE: CT thoracic spine wo con DATE OF EXAM: 01/07/2024 COMPARISON: None HISTORY: 53-year-old female Rt side shoulder/upper chest pain. TECHNIQUE: Contiguous axial scanning of the thoracic spine without IV contrast. Coronal and sagittal reconstructions performed. CT DLP: Combined DLP of 1959.2 mGycm Automated exposure control for dose reduction was used. FINDINGS: There is mild facet arthropathy in the upper thoracic spine especially on the left. Vertebral body heights are preserved and alignment is maintained. By CT, no large focal disc herniation is seen or evident canal compromise. Spinal stimulator leads entering the spinal canal via the T11-T12 interlaminar space and extending to the dorsal aspect of the lower thoracic spinal canal. IMPRESSION: NO VERTEBRAL COMPRESSION COLLAPSE OR MALALIGNMENT. SCATTERED MILD FACET ARTHROPATHY ESPECIALLY UPPER THORACIC SPINE. SPINAL STIMULATOR ARRAY ALONG THE LOWER THORACIC SPINAL CANAL.
[2024-01-07 16:55] LABS: Partial Thromboplastin Time 21.5 sec (22.0-30.0)
--- NOTE | 2024-01-07 17:09 | CT ---
EXAMINATION TYPE: CT chest angio for PE DATE OF EXAM: 01/07/2024 COMPARISON: CT 06/21/2023 HISTORY: 53-year-old female Rt side shoulder/upper chest pain. TECHNIQUE: Contiguous axial scanning of the chest performed with IV Contrast, patient injected with 1 00 ml mL of Isovue 370. Coronal and sagittal MIP reconstructions performed. CT DLP: Combined DLP of 1959.2 mGycm Automated exposure control for dose reduction was used. FINDINGS: Heart is normal size without pericardial effusion. No flattening of the interventricular system and r eflux of contrast. Proximal LAD coronary calcifications. Aorta normal caliber with conventional arch vessel branching anatomy. No thoracic lymphadenopathy by CT size criteria. Satisfactory opacification of the pulmonary arterial system without evidence for pulmonary embolus. Subpleural reticular change posterior lung bases may represent some minimal fibrosis. Some strandy sc arring is present anterior right midlung. [id number] emphysematous change. No consolidation or pleural effusion. Some tree-in-bud opacities anterior left midlung. Visualized upper abdomen shows no gross abnormality. Bones: Spinal stimulator is along the mid to lower thoracic spinal canal. IMPRESSION: 1. COPD WITH [id number] EMPHYSEMA. SIMILAR MINIMAL FIBROSIS IN THE LOWER LUNGS. 2. SOME TREE-IN-BUD OPACITY AT THE ANTERIOR LEFT MIDLUNG SUGGESTS BRONCHIOLITIS. 3. NO EVIDENCE FOR PULMONARY EMBOLUS.
[2024-01-07 17:59] VITALS: BP 114/60; PULSE 69
--- NOTE | 2024-01-07 18:11 | ED ---
General Adult HPI - General Chief complaint: Extremity Injury, Upper Stated complaint: Chest pain Time Seen by Provider: 01/07/24 15:38 Source: patient, RN notes reviewed, old records reviewed Mode of arrival: ambulatory Limitations: no limitations - History of Present Illness Initial comments: Patient is a 53-year-old male presents emergency department complaining of chronic neck and back pain with radiation to the front chest. States it goes over her shoulder and to the right chest wall. Worse with movements. Improves with certain movements of the right arm. Has a history of chronic back pain. Had trigger point injections on December 13 and has been having the symptoms since. No left-sided chest pain. No shortness of breath. No coughing or fevers. No nausea or vomiting. No history of PEs. No cardiac history. Presents for f urther evaluation at this time. - Related Data Home Medications Medication Instructions Recorded Confirmed ALPRAZolam [Xanax] 0.5 mg PO Q6H PRN 02/06/23 03/16/23 Albuterol Inhaler [Ventolin Hfa 2 puff INHALATION RT-Q4H PRN 02/06/23 03/16/23 Inhaler] Cetirizine HCl/Pseudoephedrine 1 tab PO BID 02/06/23 03/16/23 [Zyrtec-D ER 5 mg-120 mg Tablet] FLUoxetine HCL 20 mg PO BID 02/06/23 03/16/23 Fluticasone Propionate 220 Mcg 2 puff INHALATION RT-BID 02/06/23 03/16/23 [Flovent 220 Mcg Inhaler] Montelukast [Singulair] 10 mg PO HS 02/06/23 03/16/23 Omeprazole 40 mg PO DAILY@1500 02/06/23 03/16/23 Isosorbide Mononitrate ER [Imdur] 30 mg PO DAILY 03/16/23 03/16/23 Metoprolol Succinate (ER) [Toprol 25 mg PO DAILY 03/16/23 03/16/23 XL] Nitroglycerin Sl Tabs [Nitrostat] 0.4 mg SL Q5M PRN 03/16/23 03/16/23 Previous Rx's Medication Instructions Recorded Atorvastatin [Lipitor] 40 mg PO HS #60 tablet 03/17/23 Cyclobenzaprine [Flexeril] 5 mg PO TID PRN 5 Days #15 tablet 01/07/24 Allergies Allergy/AdvReac Type Severity Reaction Status Date / Time Penicillins Allergy Rash/Hives Verified 01/07/24 14:12 Sulfa (Sulfonamide AdvReac Nausea & Verified 01/07/24 14:12 Antibiotics) Vomiting sulfamethoxazole AdvReac Nausea & Verified 01/07/24 14:12 [From Bactrim] Vomiting trimethoprim [From Bactrim] AdvReac Nausea & Verified 01/07/24 14:12 Vomiting Review of Systems ROS Statement: Those systems with pertinent positive or pertinent negative responses have been documented in the HPI. Review of Systems: CONST: Denies fever EYES: Denies blurry vision ENT: Denies nasal congestion C/V: Denies Chest pain RESP: Denies shortness of breath GI: Denies abdominal pain : Denies dysuria SKIN: Denies rash. MSK: Endorses posterior right back pain as well as right chest wall pain. NEURO: Denies headache ROS Other: All systems not noted in ROS Statement are negative. Past Medical History Past Medical History: COPD, GERD/Reflux, Hyperlipidemia, Osteoarthritis (OA) Additional Past Medical History / Comment(s): VERTIGO, CHRONIC BACK PAIN( BROKE BACK IN WORK INJURY), OSTEOPENIA, REACTIVE HYPOGLYCEMIA History of Any Multi-Drug Resistant Organisms: None Reported Past Surgical History: Back Surgery Additional Past Surgical History / Comment(s): SPINAL CORD STIMULATOR, LUMBAR SX, KIDNEY STONE PROCEDURE, D & C, ECTOPIC , RT CTR Past Anesthesia/Blood Transfusion Reactions: Motion Sickness, Postoperative Nausea & Vomiting (PONV) Additional Past Anesthesia/Blood Transfusion Reaction / Comment(s): AIRWAY DIFFICULTY Past Psychological History: Anxiety, Panic Disorder Smoking Status: Current every day smoker Past Alcohol Use History: None Reported Past Drug Use History: None Reported - Past Family History Mother Family Medical History: Deep Vein Thrombosis (DVT) General Exam - General Exam Comments Initial Comments: General: Appears in no acute distress. HEAD: Normal with no signs of head trauma. EYES: PERRLA, EOMI, conjunctiva normal, no discharge. ENT: Hearing grossly intact, normal oropharynx. RESPIRATORY: Clear breath sounds bilaterally. No wheezes, rales, or rhonchi. C/V: Regular rate and rhythm. S1 and S2 auscultated, no edema, peripheral pulses 2+ and intact throughout ABD: Abd is soft, nontender, nondistended EXT: Normal range of motion, no obvious deformity. Right sided paraspinal muscle tenderness to palpation along the thoracic right spine as well as lower cervical spine. Some right shoulder and trapezius muscle tenderness to palpation as well as some right upper chest wall tenderness to palpation. Seems to be musculoskeletal. Worse with movements as well as with palpation. No obvious deformities. No obvious swelling. SKIN: No rashes or lesions observed on exposed skin. NEURO: Alert and oriented x 4. No focal deficits. Limitations: no limitations Course Vital Signs 01/07/24 01/07/24 01/07/24 14:12 16:29 17:57 Temperature 98.1 F Pulse Rate 82 67 69 Respiratory 16 18 18 Rate Blood Pressure 120/77 102/58 114/60 O2 Sat by Pulse 98 97 97 Oximetry 01/07/24 18:22 Temperature Pulse Rate Respiratory 16 Rate Blood Pressure O2 Sat by Pulse Oximetry Medical Decision Making - Medical Decision Making Was pt. sent in by a medical professional or institution (, PA, SIGNAL PROCESSING ENGINEER, urgent care, hospital, or [facility]...) When possible be specific @ -Sent by urgent care for evaluation. Did you speak to anyone other than the patient for history (EMS, parent, family, police, friend...)? What history was obtained from this source @ -No Did you review nursing and triage notes (agree or disagree)? Why? @ -I reviewed and agree with nursing and triage notes Were old charts reviewed (outside hosp., previous admission, EMS record, old EKG, old radiological studies, urgent care reports/EKG's, [facility] records)? Report findings @ -No old charts were reviewed Differential Diagnosis (chest pain, altered mental status, abdominal pain women, abdominal pain men, vaginal bleeding, weakness, fever, dyspnea, syncope, headache, dizziness, GI bleed, back pain, seizure, CVA, palpatations, mental health, musculoskeletal)? @ -Differential Musculoskeletal Muscular strain, contusion, ligament sprain, fracture, arthritis, septic arthritis, bursitis, cellulitis, muscle spasm, nerve compression, DVT, arterial occlusion, herpes zoster, electrolyte abnormality, tumor.... This is not meant to be in all inclusive list EKG interpreted by me (3pts min.). @ -As above X-rays interpreted by me (1pt min.). @ -None done CT interpreted by me (1pt min.). @ -CT chest PE negative for PE. No obvious acute findings on CT imaging. CT thoracic and cervical spine negative for any obvious acute process. Degenerative changes present. U/S interpreted by me (1pt. min.). @ -None done What testing was considered but not performed or refused? (CT, X-rays, U/S, labs)? Why? @ -None What meds were considered but not given or refused? Why? @ -None Did you discuss the management of the patient with other professionals (professionals i.e. , PA, SIGNAL PROCESSING ENGINEER, lab, RT, psych nurse, dialysis social worker, setter cold rolling machine, teacher, morale officer, renal case manager)? Give summary @ -No Was smoking cessation discussed for >3mins.? @ -No Was critical care preformed (if so, how long)? @ -No Were there social determinants of health that impacted care today? How? (Homelessness, low income, unemployed, alcoholism, drug addiction, transportation, low edu. Level, literacy, decrease access to med. care, group home, rehab)? @ -No Was there de-escalation of care discussed even if they declined (Discuss DNR or withdrawal of care, Hospice)? DNR status @ -No What co-morbidities impacted this encounter? (DM, HTN, Smoking, COPD, CAD, Cancer, CVA, ARF, Chemo, Hep., AIDS, mental health diagnosis, sleep apnea, morbid obesity)? @ -None Was patient admitted / discharged? Hospital course, mention meds given and route, prescriptions, significant lab abnormalities, going to OR and other pertinent info. @ -Based on the patient's presentation and physical exam, presents emergency department for chronic pain. Seems to have musculoskeletal back as well as chest wall pain. Has been worse. Not responding to her spinal stimulator or to other medications at home. Has been trying to avoid Percocets at home. Follows up with Dr. hassan of pain . Vital signs are within acceptable limits. Symptoms have been ongoing over the course of the last month. Laboratory studies unremarkable including undetectable troponin. EKG shows no signs of acute ischemia. Imaging unremarkable. On reevaluation discussed is likely musculoskeletal pain. Is a chronic pain patient. Recommend she follow-up with her pain specialist. She was in agreement this plan. She is feeling improved following IV analgesia medications. She will be given a prescription for Flexeril. She has Percocet at home. I will provide the patient with a prescription for Flexeril. I instructed the patient to follow up with their PCP in the next 1-3 days. I explained that the patient should return to the emergency department if they experience any worse yuri symptoms. Strict return precautions were discussed with the patient. The patient expressed understanding of these instructions. I answered all questions that the patient had. The patient was discharged home in fair condition with their prescriptions and follow up information. Undiagnosed new problem with uncertain prognosis? @ -No Drug Therapy requiring intensive monitoring for toxicity (Heparin, Nitro, Insulin, Cardizem)? @ -No Were any procedures done? @ -No Diagnosis/symptom? @ -Chest wall pain, musculoskeletal pain, chronic pain Acute, or Chronic, or Acute on Chronic? @ -Acute on chronic Uncomplicated (without systemic symptoms) or Complicated (systemic symptoms)? @ -Uncomplicated Side effects of treatment? @ -No Exacerbation, Progression, or Severe Exacerbation? @ -No Poses a threat to life or bodily function? How? (Chest pain, USA, NM, pneumonia, PE, COPD, DKA, ARF, appy, cholecystitis, CVA, Diverticulitis, Homicidal, Suicidal, threat to staff... and all critical care pts) @ -Unlikely - Lab Data Result diagrams: 01/07/24 16:01 01/07/24 16:01 Lab Results 01/07/24 01/07/24 01/07/24 Range/Units 16:01 16:01 16:01 WBC 12.8 H (3.8-10.6) k/uL RBC 4.64 (3.80-5.40) m/uL Hgb 14.1 (11.4-16.0) gm/dL Hct 42.7 (34.0-46.0) % MCV 92.1 (80.0-100.0) fL MCH 30.3 (25.0-35.0) pg MCHC 32.9 (31.0-37.0) g/dL RDW 14.5 (11.5-15.5) % Plt Count 246 (150-450) k/uL MPV 7.3 Neutrophils % 56 % Lymphocytes % 35 % Monocytes % 6 % Eosinophils % 1 % Basophils % 1 % Neutrophils # 7.2 (1.3-7.7) k/uL Lymphocytes # 4.5 (1.0-4.8) k/uL Monocytes # 0.7 (0-1.0) k/uL Eosinophils # 0.1 (0-0.7) k/uL Basophils # 0.1 (0-0.2) k/uL PT 10.3 (10.0-12.5) sec INR 0.9 (<1.2) APTT 21.5 L (22.0-30.0) sec Sodium 139 (137-145) mmol/L Potassium 3.8 (3.5-5.1) mmol/L Chloride 106 (98-107) mmol/L Carbon Dioxide 26 (22-30) mmol/L Anion Gap 7 mmol/L BUN 15 (7-17) mg/dL Creatinine 0.69 (0.52-1.04) mg/dL Est GFR (CKD-EPI)AfAm >90 (>60 ml/min/1.73 sqM) Est GFR (CKD-EPI)NonAf >90 (>60 ml/min/1.73 sqM) Glucose 113 H (74-99) mg/dL Calcium 9.3 (8.4-10.2) mg/dL Magnesium 1.7 (1.6-2.3) mg/dL Total Bilirubin 0.4 (0.2-1.3) mg/dL AST 24 (14-36) U/L ALT 34 (4-34) U/L Alkaline Phosphatase 70 (38-126) U/L Troponin I (0.000-0.034) ng/mL Total Protein 6.0 L (6.3-8.2) g/dL Albumin 3.7 (3.5-5.0) g/dL Urine Color Urine Appearance (Clear) Urine pH (5.0-8.0) Ur Specific Marine (1.001-1.035) Urine Protein (Negative) Urine Glucose (UA) (Negative) Urine Ketones (Negative) Urine Blood (Negative) Urine Nitrite (Negative) Urine Bilirubin (Negative) Urine Urobilinogen (<2.0) mg/dL Ur Leukocyte Esterase (Negative) Urine WBC (0-5) /hpf Ur Squamous Epith Cells (0-4) /hpf Amorphous Sediment (None) /hpf Urine Bacteria (None) /hpf Hyaline Casts (0-2) /lpf Urine Mucus (None) /hpf 01/07/24 01/07/24 Range/Units 16:01 16:01 WBC (3.8-10.6) k/uL RBC (3.80-5.40) m/uL Hgb (11.4-16.0) gm/dL Hct (34.0-46.0) % MCV (80.0-100.0) fL MCH (25.0-35.0) pg MCHC (31.0-37.0) g/dL RDW (11.5-15.5) % Plt Count (150-450) k/uL MPV Neutrophils % % Lymphocytes % % Monocytes % % Eosinophils % % Basophils % % Neutrophils # (1.3-7.7) k/uL Lymphocytes # (1.0-4.8) k/uL Monocytes # (0-1.0) k/uL Eosinophils # (0-0.7) k/uL Basophils # (0-0.2) k/uL PT (10.0-12.5) sec INR (<1.2) APTT (22.0-30.0) sec Sodium (137-145) mmol/L Potassium (3.5-5.1) mmol/L Chloride (98-107) mmol/L Carbon Dioxide (22-30) mmol/L Anion Gap mmol/L BUN (7-17) mg/dL Creatinine (0.52-1.04) mg/dL Est GFR (CKD-EPI)AfAm (>60 ml/min/1.73 sqM) Est GFR (CKD-EPI)NonAf (>60 ml/min/1.73 sqM) Glucose (74-99) mg/dL Calcium (8.4-10.2) mg/dL Magnesium (1.6-2.3) mg/dL Total Bilirubin (0.2-1.3) mg/dL AST (14-36) U/L ALT (4-34) U/L Alkaline Phosphatase (38-126) U/L Troponin I <0.012 (0.000-0.034) ng/mL Total Protein (6.3-8.2) g/dL Albumin (3.5-5.0) g/dL Urine Color Yellow Urine Appearance Cloudy H (Clear) Urine pH 5.5 (5.0-8.0) Ur Specific Marine 1.040 H (1.001-1.035) Urine Protein 1+ H (Negative) Urine Glucose (UA) Negative (Negative) Urine Ketones Trace H (Negative) Urine Blood Negative (Negative) Urine Nitrite Negative (Negative) Urine Bilirubin 1+ H (Negative) Urine Urobilinogen 4.0 (<2.0) mg/dL Ur Leukocyte Esterase Trace H (Negative) Urine WBC 2 (0-5) /hpf Ur Squamous Epith Cells 7 H (0-4) /hpf Amorphous Sediment Occasional H (None) /hpf Urine Bacteria Rare H (None) /hpf Hyaline Casts 4 H (0-2) /lpf Urine Mucus Occasional H (None) /hpf - EKG Data -: EKG Interpreted by Me EKG Comments: 12-lead Electrocardiogram Interpretation Note EKG was reviewed and interpreted by myself. 12-lead ECG performed at 1553 is interpreted by me as revealing normal sinus rhythm at a rate of 70 beats per minute. axis is normal. WA interval is 138 ms, QRS durations 86 ms, QTc is 391 ms.. There were no ST or T wave abnormalities to suggest myocardial ischemia or injury. R wave progression across the precordium was satisfactory. By my interpretation this EKG is non-diagnostic for acute ischemia. Disposition Clinical Impression: Musculoskeletal pain, Chronic pain, Chest wall pain Disposition: HOME SELF-CARE Condition: Fair Instructions (If sedation given, give patient instructions): Musculoskeletal Pain (ED), Chest Wall Pain (ED) Prescriptions: Cyclobenzaprine [Flexeril] 5 mg PO TID PRN 5 Days #15 tablet PRN Reason: Pain Is patient prescribed a controlled substance at d/c from ED?: No Referrals: Rosemary Rosado MD [Primary Care Provider] - 1-2 days Time of Disposition: 18:10
[2024-01-07 18:24] VITALS: RESP 16
== END 2024-01-07 18:24 | disposition home or self-care (01) ==
LOC: EC 14:03
DX: G89.29 Other chronic pain (principal); R07.89 Other chest pain; F17.200 Nicotine dependence, unspecified, uncomplicated; Z88.0 Allergy status to penicillin; Z88.1 Allergy status to other antibiotic agents; Z88.2 Allergy status to sulfonamides
CPT/HCPCS: 36415; 93005; 80053; 83735; 84484; 85025; 85610; 85730; 81001; 72128; 72125; 71275; 99285; 96374; 96375 ×2; 96376; 96361; J2270; J1885; Q9967; J2919

== ENCOUNTER → 2024-03-22 | Day surgery (SDC) | payer MEDICARE ==
[2024-03-20 12:38] VITALS: BMI 30.7
[~2024-03-22] MED LIST changes: -HYDROmorphone 0.5 MG/0.5 ML SYRINGE IVP PRN; -MIDAZOLAM 2 MG/2 ML VIAL ONE; -Pre Op ABX Message 1 EACH MISC MISCELLANE ONE; -fentaNYL (PF) 50 MCG/ML 2 ML AMP ONE
[2024-03-22] MEDS: IV FLUID CONTINUATION 1,000 ML IV ONE (12:14)
[2024-03-22 12:30] VITALS: TEMP 97.8
--- NOTE | 2024-03-22 13:18 | P.PCN ---
Date of Procedure: 03/22/24 Procedure(s) Performed: BRIEF HISTORY: Patient is a 53-year-old, pleasant, white female scheduled for an upper endoscopy as a part evaluation of epigastric pain, nausea, intermittent dysphagia to solids for the last 3 years duration. PROCEDURE PERFORMED: Esophagogastroduodenoscopy with biopsy. PREOPERATIVE DIAGNOSIS: Epigastric pain/nausea/intermittent dysphagia to solids. IV sedation per anesthesia. PROCEDURE: After informed consent was obtained, the patient was brought into the endoscopy unit. IV sedation was administered by Anesthesia under continuous monitoring. Initially the Olympus GIF-140 video endoscope was inserted into the mouth. Esophagus intubated without any difficulty. It was gradually advanced into the stomach and duodenum and carefully examined. The bulb and the second part of the duodenum appeared normal. The scope at this time was withdrawn to the stomach, adequately insufflated with air, and upon careful examination, mucosa of the antrum, feels gastritis and biopsies were done from this area. Mucosa of the body, cardia and the fundus appeared normal. The scope was then withdrawn into the esophagus. The GE junction was located at 39 cm from the incisors. The esophagus appeared normal. There were no erosions or ulcerations seen. No evidence of esophageal stricture. Biopsies were done from the distal esophagus and the patient tolerated the procedure well. IMPRESSION: 1. Mild diffuse gastritis involving the antrum s/p biopsy. 2. No evidence of esophagitis or peptic ulcer disease. RECOMMENDATIONS: The findings of this examination were discussed with the patient as well as her family. She was advised to follow-up with the biopsy results. Treat with omeprazole 20 mg daily and follow antireflux measures. Follow-up in the office in 2 weeks.
[2024-03-22 13:47] VITALS: BP 145/93; PULSE 70; RESP 15
== END ==
LOC: ORWHC2ENDO 10:36
PROVIDERS: ATTEND Internal Medicine Gastroenterology
DX: K29.50 Unspecified chronic gastritis without bleeding (principal); K21.00 Gastro-esophageal reflux disease with esophagitis, without bleeding; E78.5 Hyperlipidemia, unspecified; F17.210 Nicotine dependence, cigarettes, uncomplicated; J44.9 Chronic obstructive pulmonary disease, unspecified; F41.0 Panic disorder [episodic paroxysmal anxiety]; M54.50 Low back pain, unspecified; Z98.890 Other specified postprocedural states; Z88.0 Allergy status to penicillin; Z88.2 Allergy status to sulfonamides; Z79.02 Long term (current) use of antithrombotics/antiplatelets; Z79.899 Other long term (current) drug therapy
CPT/HCPCS: 43239; J2003; J2704; 88305

== ENCOUNTER → 2024-04-26 | Outpatient (CLI) | payer MEDICARE ==
[2024-04-26 18:34] LABS: HCT 41.9 % (37.2-46.3); HGB 13.6 g/dL (12.0-15.0); MCHC 32.5 g/dL (32.0-37.0); MCV 92.3 FL (80.0-97.0); Mean Platelet Volume 10.1 FL (9.5-12.2); NRBC Per 100 WBC 0 X 10*3/uL (0.00-0.01); Platelet Count 241 X 10*3/uL (140-440); RBC 4.54 X 10*6/uL (4.10-5.20); RDW 13.3 % (11.5-14.5); WBC 7.86 X 10*3/uL (4.50-10.00)
[2024-04-26 19:26] LABS: Blood Urea Nitrogen 10.3 mg/dL (9.0-27.0); Carbon Dioxide 25.8 mmol/L (21.6-31.8); Chloride 102 mmol/L (96-109); Potassium 4.4 mmol/L (3.5-5.5); Sodium 140 mmol/L (135-145)
== END | disposition home or self-care (01) ==
LOC: LABWHC1 14:25
PROVIDERS: ATTEND Internal Medicine Cardiovascular Disease
DX: Z01.818 Encounter for other preprocedural examination (principal); R94.39 Abnormal result of other cardiovascular function study
CPT/HCPCS: 80051; 82565; 84520; 85027

== ENCOUNTER 2024-05-27 06:02 | Day surgery (SDC) | payer MEDICARE ==
[2024-05-23 15:33] VITALS: BMI 35.2
[2024-05-27] MEDS ORDERED: ASPIRIN 325 MG TAB PO STA (06:09)
[2024-05-27] MEDS ORDERED: NITROGLYCERIN SL TABS 0.4 MG TAB SUBLINGUAL PRN (06:09)
[2024-05-27] MEDS ORDERED: ALPRAZolam 0.25 MG TAB PO PRN (06:09)
[2024-05-27] MEDS: IV FLUID CONTINUATION 1,000 ML IV ONE (06:45)
[2024-05-27] MEDS: ALPRAZolam 0.5 MG TAB PO PRN (06:48)
[2024-05-27] MEDS: SODIUM CHLORIDE 0.9% 1,000 ML in EMPTY BAG 1 BAG IV SCH (06:48)
[2024-05-27 06:57] VITALS: RESP 16; TEMP 98.3
[2024-05-27] MEDS: MIDAZOLAM 2 MG/2 ML VIAL IVP ONE (07:33)
[2024-05-27] MEDS: LIDOCAINE 1% INJ 10MG/ML (20 ML MDV) SQ ONE (07:33)
[2024-05-27] MEDS: fentaNYL (PF) 50 MCG/1 ML VIAL IVP ONE (07:33)
[2024-05-27] MEDS: HEPARIN SODIUM,PORCINE 10,000 UNIT in SODIUM CHLORIDE 0.9% 1,000 ML IRRIGATION PRN (07:42)
[2024-05-27] MEDS: HEPARIN SODIUM,PORCINE (1 ML) 2,500 UNIT in SODIUM CHLORIDE 0.9% 250 ML IRRIGATION PRN (07:42)
[2024-05-27] MEDS: IOPAMIDOL-370 100ML BTL INJ ONE (08:06)
--- NOTE | 2024-05-27 08:25 | CC ---
CARDIAC CATHETERIZATION REPORT INDICATION: Shortness of breath with abnormal stress test showing ischemia involving mid anterior wall. PROCEDURE NOTE: After obtaining informed consent, left heart catheterization and coronary angiogram were performed via the right femoral artery using standard Dioni catheters. The patient tolerated the procedure well without any obvious immediate complications. A femoral angiogram was performed, and Angio-Seal was deployed for hemostasis. Total sedation time was 25 minutes. I initially attempted right radial artery access, but was unsuccessful. Hence, proceeded with the femoral catheterization that was completed uneventfully. FINDINGS: 1. Hemodynamics: a.Left ventricular end-diastolic pressure is 16 mmHg. There is no significant gradient across the aortic valve. b.Left ventriculogram: Left ventriculogram is not performed. 2. Angiographic data: Right coronary artery: The right coronary artery shows mild calcification without significant focal obstructive disease. Left main coronary artery is a normal-sized vessel and is free of stenosis, divides into left anterior descending coronary artery, ramus intermedius, and circumflex coronary artery. LAD and its branches, circumflex coronary artery and its branches are free of significant stenosis. CONCLUSION: Mild nonobstructive coronary artery disease. PLAN: The patient's management is going to be in the form of risk factor modification, optimal medical therapy. I reviewed angiographic data with the patient and told her that her stress test is probably a false-positive stress test. MMODL / IJN: [id number] /
[2024-05-27 09:15] VITALS: PULSE 62
[2024-05-27] MEDS: ACETAMINOPHEN TAB 500 MG TAB PO STA (10:24)
[2024-05-27 12:15] VITALS: BP 111/65
== END 2024-05-27 12:07 | disposition home or self-care (01) ==
LOC: CATHCVL 06:02
PROVIDERS: ATTEND Internal Medicine Cardiovascular Disease
DX: I25.10 Atherosclerotic heart disease of native coronary artery without angina pectoris (principal); E78.5 Hyperlipidemia, unspecified; J44.9 Chronic obstructive pulmonary disease, unspecified; F17.210 Nicotine dependence, cigarettes, uncomplicated; Z79.82 Long term (current) use of aspirin; Z79.899 Other long term (current) drug therapy; Z82.49 Family history of ischemic heart disease and other diseases of the circulatory system
CPT/HCPCS: 93458; 99152; 99153; C1760; C1769 ×2; C1894 ×2; J2250; J1644 ×2; J2003; Q9967; J3010